=== PATIENT | female | born 1995 | race African-American/Black ===

== ENCOUNTER 2020-09-01 10:38 | Emergency (ER) | payer OTHER ==
[2020-09-01 10:50] VITALS: BP 105/72; PULSE 86; TEMP 98; BMI 26.4
[2020-09-01 11:47] LABS: BASO % 0.7 % (0-2.0); EOS % 0.5 % (0-4.5); HEMATOCRIT 36.8 % (32.4-45.2); HEMOGLOBIN 12.3 GM/dL (10.7-15.3); LYMPH % 33.5 % (8-40); MCH 31.6 pg (25.7-33.7); MCHC 33.4 g/dl (32.0-36.0); MEAN CELL VOLUME 94.5 fl (80-96); MEAN PLT VOLUME 8.4 fl (7.5-11.1); MONO % 10.3 % (3.8-10.2); PLATELET COUNT 261 10^3/uL (134-434); RBC 3.89 M/mm3 (3.60-5.2); RDW 13.7 % (11.6-15.6); WHITE BLOOD COUNT 5.5 K/mm3 (4.0-10.0)
[2020-09-01 11:56] LABS: INR 1.14 (0.83-1.09)
[2020-09-01 11:59] LABS: ACTIVATED PTT 27.2 SECONDS (25.2-36.5)
[2020-09-01 12:15] LABS: CALCIUM 9.6 mg/dL (8.5-10.1)
[2020-09-01 12:16] LABS: BLOOD UREA NITROGEN 10.2 mg/dL (7-18)
[2020-09-01 12:19] LABS: CREATININE 0.7 mg/dL (0.55-1.3)
[2020-09-01 12:20] LABS: BILIRUBIN,TOTAL 0.5 mg/dL (0.2-1); TOT PROT 7.9 g/dl (6.4-8.2)
[2020-09-01 12:46] LABS: URINE APPEARANCE CLEAR; URINE BILIRUBIN NEGATIVE (NEGATIVE); URINE COLOR YELLOW; URINE GLUCOSE (UA) NEGATIVE (NEGATIVE); URINE KETONE 2+ (NEGATIVE); URINE LEUK ESTERASE NEGATIVE (NEGATIVE); URINE NITRITE NEGATIVE (NEGATIVE); URINE PROTEIN NEGATIVE (NEGATIVE)
[2020-09-01 12:48] LABS: HCG,QUALITATIVE URINE Negative
== END 2020-09-01 13:32 | disposition home or self-care (01) ==
LOC: JER 10:38
DX: R10.11 Right upper quadrant pain (principal)
CPT/HCPCS: 36415; 76705-TC; 80053; 81003; 83690; 84703; 85025; 85610; 85730; 87086; 99284-25